=== PATIENT | male | born 1965 | race Caucasian/White ===

== ENCOUNTER 2018-07-13 15:48 | Emergency (ER) | payer SELFPAY ==
[2018-07-13 15:48] VITALS: BP 114/87; PULSE 80; RESP 16; TEMP 36.6; O2SAT 97; BMI 24.5
--- NOTE | 2018-07-13 16:32 | ED.VISSUMM ---
- ER Visit Summary Date of Service: 07/13/18 Chief Complaint: Nausea, vomiting and diarrhea. History of Present Illness: The patient is a 53 M no significant past medical history. Only surgery was for hernia. Patient states that since last he has had nausea, vomiting and diarrhea. No fever. No dysuria. No melena. Denies any significant abdominal pain. Mild cramping with dry heaves. States he left work today and needs a work excuse. He does not want to be worked up. He does not want an IV or IV fluids at this time. Physical Examination: Middle-aged male. Vital signs are stable. He is afebrile. He does not look septic or toxic. HEENT exam unremarkable except for mildly dry mucous membranes. Neck nontender no lymphadenopathy. Lungs clear to auscultation bilaterally. Heart regular rhythm no murmur rate about 80. Abdomen soft. Nondistended. Normal bowel sounds. No peritoneal signs. Both the right upper and right lower quadrants are completely unremarkable. No hernias. No distention. No signs of obstruction. No masses. Positive bowel sounds. Moving all 4 extremities. No edema. Back nontender. Neurologically is awake and alert with no focal motor deficits. Test Results: None Emergency Department Course and Treatment: Patient was offered but deferred IV fluids or IV medications. He will be given p.o. Zofran prior to discharge. Treatment Plan: Zofran as needed for nausea. Return if feeling worse. Off work today. Disposition: Discharge Impression: Acute nausea, vomiting and diarrhea secondary to neuritis Mild dehydration This note was generated with [employer] dictation software. It may contain incorrect words, spelling, and punctuation that were not noted in review of the chart prior to signing ED Disposition - Plan for ED Patient: Chief Complaint: Nausea/Vomiting Referrals: Care Physician,No Primary [Primary Care Provider] -
--- NOTE | 2018-07-13 16:34 | ED.DEP ---
ED Disposition - Plan for ED Patient: Disposition: Home or Assisted Living Chief Complaint: Nausea/Vomiting Instructions: ED Gastroenteritis Viral Prescriptions: Ondansetron [Zofran Odt] 4 mg PO Q2H PRN PRN #10 tab.rapdis PRN Reason: Nausea Referrals: Jeff Mera MD [STAFF PHYSICIAN] - 1-2 Days if not improving Additional Instructions: Plenty of fluids and rest. Increase diet as tolerated. Return if worse. Zofran as needed for nausea.
[2018-07-13] MEDS: Ondansetron ODT 4 MG Tablet 8 MG PO (16:44)
--- NOTE | 2018-07-13 16:47 | ED.RN ---
DISCHARGE INSTRUCTIONS GIVEN TO AND REVIEWED WITH PATIENT, PATIENT DENIES QUESTIONS OR CONCERNS AND VOICES UNDERSTANDING OF DISCHARGE INSTRUCTIONS. PT AMBULATES OUT OF ROOM WITHOUT DIFFICULTY.
== END 2018-07-13 16:48 | disposition home or self-care (01) ==
LOC: ED 16:41
PROVIDERS: Emergency Provider Emergency Medicine
DX: M79.2 Neuralgia and neuritis, unspecified (principal); E86.0 Dehydration
CPT/HCPCS: 99283

== ENCOUNTER 2018-10-07 19:17 | Emergency (ER) | payer SELFPAY ==
[2018-10-07 19:18] VITALS: BP 158/97; PULSE 102; PULSE 104; RESP 18; TEMP 37.2; O2SAT 98; BMI 24.7
--- NOTE | 2018-10-07 19:57 | ED.DCSUM_ITS ---
- ER Visit Summary Date of Service: 10/07/18 Chief Complaint: Nausea, vomiting, and diarrhea History of Present Illness: The patient is a 53 M with nausea, vomiting, and diarrhea for 2 days. This came on gradually. He was sent home from work because he was sick. No fevers. He does have cold symptoms. No past medical history. No medications. No allergies. Physical Examination: Afebrile and vital signs unremarkable. Nontoxic and in no acute distress. Alert and oriented. Heart regular. Lungs clear. Abdomen soft and nontender. Skin appears normal. Normal mucous membranes. Test Results: None indicated Emergency Department Course and Treatment: Patient was treated with Imodium and Zofran. Stay hydrated. This is likely a viral illness. There is no indication for imaging or other diagnostic testing. Patient was given a work note. Return for any new or worsening issues. Treatment Plan: As above Disposition: Discharge Impression: Nausea, vomiting, diarrhea This note was generated with [employer] dictation software. It may contain incorrect words, spelling, and punctuation that were not noted in review of the chart prior to signing ED Disposition - Plan for ED Patient: Disposition: Home or Assisted Living Chief Complaint: Nausea/Vomiting/Diarrhea Instructions: ED Vomiting Diarrhea Nonspecific Ad Prescriptions: Loperamide [Imodium] 2 mg PO Q4H PRN PRN #20 cap PRN Reason: diarrhea Ondansetron [Zofran Odt] 4 mg PO Q8H PRN PRN #10 tab PRN Reason: Nausea
[2018-10-07 20:52] VITALS: BP 145/80; PULSE 80; RESP 18; O2SAT 99
--- OUTSIDE RECORDS SUMMARY | 2018-12-12 17:08 | XMS RPT_ITS ---
:1965 Author Organization [facility] Care Team Providers Name Role Phone Primay Care Physicia, No Primary Care Unavailable Louie Bartholomew Attending Unavailable Dia Chowdhury Attending Unavailable Primay Care Physicia, No Referring Unavailable Primay Care Physicia, No Primary Care Unavailable Ruben Savage Attending Unavailable Tourlas, Philippe Primary Care Unavailable Roge Cano Admitting Unavailable Roge Cano Attending Unavailable Tourlas, Philippe Primary Care Unavailable Jerry Estevez Admitting Unavailable Jerry Estevez Attending Unavailable Tourlas, Philippe Primary Care Unavailable Poulan, Celi A Admitting Unavailable Darek, Celi A Attending Unavailable Tourlas, Philippe Primary Care Unavailable Sokari, Telemate Admitting Unavailable Sokari, Telemate Attending Unavailable Tourlas, Philippe Primary Care Unavailable Ivanauskas, Saulius Admitting Unavailable Ivanauskas, Saulius Attending Unavailable Tourlas, Philippe Primary Care Unavailable Cano, Roge Admitting Unavailable Cano, Roge Attending Unavailable Tourlas, Philippe Primary Care Unavailable Leighann, Darryl W Admitting Unavailable Leighann, Darryl W Attending Unavailable Tourlas, Philippe Primary Care Unavailable Asbridge, Carlota Admitting Unavailable Asbridge, Carlota Attending Unavailable Tourlas, Philippe Primary Care Unavailable Cano, Roge Admitting Unavailable Cano, Roge Attending Unavailable Tourlas, Philippe Primary Care Unavailable Ivanauskas, Saulius Admitting Unavailable Ivanauskas, Saulius Attending Unavailable PROBLEMS PROBLEMS No Problem Records FoundPROCEDURES PROCEDURES No Procedure Records FoundRESULTS RESULTS EMERGENCY DEPARTMENT Observed: 10/07/2018 Status: F Source: AHSAHKA SUMMARY 11:50 PM [facility] REPOSITORY [facility] Medical Records Department [address] [place] [address] Emergency Department Summary 10/07/181955 MR#: [id number] Acct: [id number] Name: MELITON SIDHU Rep #: [id number] : 1965 53 From: Louie Bartholomew MD PCP: Care Physician, No Primary Status: DEP ER - ER Visit Summary Date of Service: 10/07/18 Chief Complaint: Nausea, vomiting, and diarrhea History of Present Illness: The patient is a 53 M with nausea, vomiting, and diarrhea for 2 days. This came on gradually. He was sent home from work because he was sick. No fevers. He does have cold symptoms. No past medical history. No medications. No allergies. Physical Examination: Afebrile and vital signs unremarkable. Nontoxic and in no acute distress. Alert and oriented. Heart regular. Lungs clear. Abdomen soft and nontender. Skin appears normal. Normal mucous membranes. Test Results: None indicated Emergency Department Course and Treatment: Patient was treated with Imodium and Zofran. Stay hydrated. This is likely a viral illness. There is no indication for imaging or other diagnostic testing. Patient was given a work note. Return for any new or worsening issues. Treatment Plan: As above Disposition: Discharge Impression: Nausea, vomiting, diarrhea This note was generated with [employer] dictation software. It may contain incorrect words, spelling, and punctuation that were not noted in review of the chart prior to signing ED Disposition - Plan for ED Patient: Disposition: Home or Assisted Living Chief Complaint: Nausea/Vomiting/Diarrhea Instructions: ED Vomiting Diarrhea Nonspecific Ad Prescriptions: Loperamide [Imodium] 2 mg PO Q4H PRN PRN #20 cap PRN Reason: diarrhea Ondansetron [Zofran Odt] 4 mg PO Q8H PRN PRN #10 tab PRN Reason: Nausea What to do if you have Problems For any increased pain, shortness of breath, bleeding, nausea or vomiting, chest pain, or any unexpected problems, contact your Primary Care Provider. Call [facility] ([phone]) or report to the closest Emergency Room. Call 911 if necessary. 10/07/18 2350 <Electronically signed by Louie Bartholomew MD> Date Louie Bartholomew MD Cosigner Signature (If Indicated): Date CC: No Primary Care Physician DISCHARGE INSTRUCTION Observed: 10/07/2018 Status: F Source: AHSAHKA 11:50 PM [facility] REPOSITORY [facility] Medical Records Department [address] [place] [address] Discharge Instruction 10/07/181956 MR#: [id number] Acct: [id number] Name: MELITON SIDHU Rep #: [id number] : 1965 53 From: Louie Bartholomew MD PCP: Care Physician, No Primary Status: DEP ER ED Disposition - Plan for ED Patient: Chief Complaint: Nausea/Vomiting/Diarrhea Instructions: ED Vomiting Diarrhea Nonspecific Ad Prescriptions: Loperamide [Imodium] 2 mg PO Q4H PRN PRN #20 cap PRN Reason: diarrhea Ondansetron [Zofran Odt] 4 mg PO Q8H PRN PRN #10 tab PRN Reason: Nausea What to do if you have Problems For any increased pain, shortness of breath, bleeding, nausea or vomiting, chest pain, or any unexpected problems, contact your Primary Care Provider. Call [facility] ([phone]) or report to the closest Emergency Room. Call 911 if necessary. 10/07/18 2350 <Electronically signed by Louie Bartholomew MD> Date Louie Bartholomew MD Cosigner Signature (If Indicated): Date CC: No Primary Care Physician EMERGENCY DEPARTMENT Observed: 07/13/2018 Status: F Source: AHSAHKA SUMMARY 11:30 PM [facility] REPOSITORY [facility] Medical Records Department [address] [place] [address] Emergency Department Summary 07/13/18 1632 MR#: [id number] Acct: [id number] Name: MELITON SIDHU Rep #: [id number] : 1965 53 From: Ruben Savage MD PCP: Care Physician, No Primary Status: DEP ER - ER Visit Summary Date of Service: 07/13/18 Chief Complaint: Nausea, vomiting and diarrhea. History of Present Illness: The patient is a 53 M no significant past medical history. Only surgery was for hernia. Patient states that since last he has had nausea, vomiting and diarrhea. No fever. No dysuria. No melena. Denies any significant abdominal pain. Mild cramping with dry heaves. States he left work today and needs a work excuse. He does not want to be worked up. He does not want an IV or IV fluids at this time. Physical Examination: Middle-aged male. Vital signs are stable. He is afebrile. He does not look septic or toxic. HEENT exam unremarkable except for mildly dry mucous membranes. Neck nontender no lymphadenopathy. Lungs clear to auscultation bilaterally. Heart regular rhythm no murmur rate about 80. Abdomen soft. Nondistended. Normal bowel sounds. No peritoneal signs. Both the right upper and right lower quadrants are completely unremarkable. No hernias. No distention. No signs of obstruction. No masses. Positive bowel sounds. Moving all 4 extremities. No edema. Back nontender. Neurologically is awake and alert with no focal motor deficits. Test Results: None Emergency Department Course and Treatment: Patient was offered but deferred IV fluids or IV medications. He will be given p.o. Zofran prior to discharge. Treatment Plan: Zofran as needed for nausea. Return if feeling worse. Off work today. Disposition: Discharge Impression: Acute nausea, vomiting and diarrhea secondary to neuritis Mild dehydration This note was generated with [employer] dictation software. It may contain incorrect words, spelling, and punctuation that were not noted in review of the chart prior to signing ED Disposition - Plan for ED Patient: Chief Complaint: Nausea/Vomiting Referrals: Care Physician,No Primary [Primary Care Provider] - What to do if you have Problems For any increased pain, shortness of breath, bleeding, nausea or vomiting, chest pain, or any unexpected problems, contact your Primary Care Provider. Call [facility] ([phone]) or report to the closest Emergency Room. Call 911 if necessary. 07/13/18 6680 <Electronically signed by Ruben Savage MD> Date Ruben Savage MD Cosigner Signature (If Indicated): Date CC: No Primary Care Physician DISCHARGE INSTRUCTION Observed: 07/13/2018 Status: F Source: ERIN 11:30 PM [facility] REPOSITORY [facility] Medical Records Department [address] [address] Discharge Instruction 07/13/18 1634 MR#: [id number] Acct: [id number] Name: MELITON SIDHU Rep #: [id number] : 1965 53 From: Ruben Savage MD PCP: Care Physician, No Primary Status: DEP ER ED Disposition - Plan for ED Patient: Disposition: Home or Assisted Living Chief Complaint: Nausea/Vomiting Instructions: ED Gastroenteritis Viral Prescriptions: Ondansetron [Zofran Odt] 4 mg PO Q2H PRN PRN #10 tab.rapdis PRN Reason: Nausea Referrals: Jeff Mera MD [STAFF PHYSICIAN] - 1-2 Days if not improving Additional Instructions: Plenty of fluids and rest. Increase diet as tolerated. Return if worse. Zofran as needed for nausea. What to do if you have Problems For any increased pain, shortness of breath, bleeding, nausea or vomiting, chest pain, or any unexpected problems, contact your Primary Care Provider. Call [facility] ([phone]) or report to the closest Emergency Room. Call 911 if necessary. 07/13/18 9150 <Electronically signed by Ruben Savage MD> Date Rbuen Savage MD Cosigner Signature (If Indicated): Date CC: No Primary Care Physician ALLERGIES ALLERGIES DATE TYPE / CODE NAME / CODE REACTION SEVERITY SOURCE 10/07/2018 Drug No Known Unknown [facility] Allergy/416 Allergies/Y79307 [facility] 356567(SNOM 0388(RXNORM) Repository ED CT) Drug/106922 No Known Sabianism 003(SNOMED Allergies [facility] CT) System Repository Drug/844166 traMADol Sabianism 003(SNOMED [facility] CT) System Repository ENCOUNTERS ENCOUNTERS ADMIT/DISCHARGE ACCOUNT NUMBER ADMITTING ENCOUNTER LOCATION SOURCE CLASS 10/09/2018/10/09/19 [id number] Adam, Emergency Sabianism Sabianism [facility] ding:[facility] EDRoom: Repository 10/09/[id number] [facility] Repository 10/07/2018/10/07/19 [id number] Emergency Erin Erin 19 [facility] ding:ED Repository 08/28/2018/08/28/[id number] [facility] EDRoom: WR Repository 08/28/2018 [id number] Ambulatory [facility] Repository 08/26/2018/08/26/[id number] Claudine, Emergency [address] [facility] EDRoom: WR Repository 08/26/2018 [id number] Ambulatory [address] [place] [address] Repository 08/03/2018/08/03/[id number] Darryl Lawton [place] [address] [facility] EDRoom: WR Repository 08/03/2018 [id number] Ambulatory [address] [place] [address] Repository 07/17/[id number] Roge Cano [facility] ding: Health System EDRoom: WR Repository 07/17/2018 [id number] Ambulatory [address] [place] [address] Repository 07/15/2018/07/15/20 [id number] Adam, [address] Regional ding: Health System EDRoom: WR Repository 07/15/2018 [id number] Ambulatory 9509 [facility] Repository 07/13/2018/07/13/20 [id number] Emergency Erin [place] 18 [facility] ding:ED Repository 04/02/2018/04/02/20 [id number] Ambulatory BMSBuilding: Erin 18 [facility] Repository 03/31/2018/03/31/20 [id number] An, [address] [facility] EDRoom: WR Repository 03/31/2018 [id number] Ambulatory 9509 [facility] Repository 01/12/2018/01/13/20 [id number] Darek, Emergency [place] [address] [facility] EDRoom: WR Repository 12/15/2017/12/16/19 [id number] Zenaida Emergency [facility] 18 [facility] ding[facility] EDRoom: WR Repository 11/20/2017/11/21/19 [id number] Roge Cano Emergency [facility] 18 [facility] EDRoom: WR Repository PAYERS PAYERS ENCOUNTER GUARANTOR PAYER SUBSCRIBER SOURCE 10/09/2018 MELITON SIDHU Primary MELITON Hall JrDOB: Insurance:Self JrDOB: [facility] E PayPolicy Number: [id number] [facility] Repository [address], Date:2018-10-09 - [address] [id number] [place] [address]Sfe: Name:Self Pay [phone]: (HP) (HP) (WP) 10/09/2018 MELITON SMITH: Primary MELITON SMITH: Phyllis E Insurance:Self [id number] [facility] Cent[facility] Number: E [facility] Repository [address], Effective Date:[address] [id number]: Name:[facility] [phone]: (HP) (HP) 10/07/2018 MELITON Villatoro NOT [facility]235 E Insurance:SELF PAY [address] Number: Effective Repository [phone]: (419) Date:2018-10-07 [phone] (HP) 08/28/2018 MELITON SIDHU Primary MELITON SIDHU Sabianism DOB: Insurance:Self JrDOB: [facility] E PayPolicy Number: [id number] [facility] Effective E [facility] Repository [address], Date:2018-08-28 - [address] [place] 7324-70-99Iyol [place] [address]Zmk: Name:Self Pay [phone]: (HP) (HP) (WP) 08/28/2018 MELITON RUIZB: Primary MELITON RUIZB: Phyllis E Insurance:Self [id number] [facility] PayPolicy Number: E [facility] Repository [address], Effective Date:Plan [address] [place] [address], [place] [id number]: Name:[facility] [phone]: (HP) (HP) 08/26/2018 MELITON SIDHU Primary MELITON Kimbrougharitan JrDOB: Insurance:Self JrDOB: [facility] E PayPolicy Number: [id number] [facility] Effective E [facility] [address], Date:2018-08-26 - [address], [place] [id number] [place] [address]Vga: Name:Self Pay [phone]: (HP) (HP) (WP) 08/26/2018 MELITON RUIZB: Primary MELITON RUIZB: Phyllis E Insurance:[place] [id number] [facility] E [facility] [address], IncPolicy Number: [facility] [place] [id number]: [id number] [place] [id number]: Date:Plan (HP) Name:[facility] O [address] () [address] [place] [address]HK: 08/03/2018 MELITON SIDHU Primary MELITON Stovall SIDHU Sabianism JrDOB: Insurance:ABDI JrDOB: [facility] E [facility] [id number] [facility] Number: Effective E [facility] [address], Date:2018-08-03 - [address], [place] [id number] [place] [address]Afb: Name::[id number] [phone]: [address], (HP) [place] [address]FK: [phone]) (HP) [phone] (WP) 08/03/2018 MELITON RUIZB: Primary MELITON RUIZB: Phyllis E Insurance:[place] [id number] [facility] E [facility] Repository [address], [facility]: [address] [facility] [place] [place] [id number]: [id number] [place] [id number]: Date:Plan (HP) Name:HealthP O Box () [address] [place] [address]DE: 07/17/2018 MELITON SIDHU Primary MELITON FrankB: Insurance:[facility]: [facility] E [facility] [id number] [facility] Number: Effective E [facility] Repository [address], Date:2018-07-17 - [address] [place] [address] [id number] [place] [address]Whg: Name:CD:[id number] [phone]: [address], (HP) [place] [address]HG: [phone]) (HP) [phone] (WP) 07/17/2018 MELITON SMITH: Primary MELITON RUIZB: Phyllis E Insurance:[place] [id number] [facility] Repository [address], [facility] Number: [address] [place] [id number]: [id number] [place] [id number]: Date:Plan (HP) Name:HealthP O Box (HP) [address] [place] [address]SZ: 07/15/2018 MELITON SIDHU Primary MELITON Stovall NAHUM Hall JrDOB: Insurance:ABDI JrDOB: [facility] E [facility] [id number] [facility] Number: Effective E [facility] Repository [address], Date:2018-07-15 - [address] [place] [address] [id number] [place] [address]Nfo: Name::[id number] [phone]: [address] [place] [address] (HP) [place] [address]HN: [phone]) (HP) [phone] () 07/15/2018 MELITON RUIZB: Primary MELITON RUIZB: Phyllis E Insurance:[place] [id number] [facility] Repository [address] [place] [address] Number: [address] [id number]: [id number] [place] [id number]: Date:Plan () Name:HealthP O Box () [address] [place] [address]ZN: 07/13/2018 MELITON O Primary NOT GIVENUNK [address] Insurance:SELF PAY [address] Number: Effective Repository [phone]: (419) Date:2018-07-13 [phone] (HP) 04/02/2018 MLEITON O Primary NOT GIVENUNK Erin [id number] [facility] Insurance:SELF PAY [address] Number: Effective Repository [phone]: (419) Date:2018-04-02 [phone] (HP) 03/31/2018 MELITON SIDHU Primary MELITON Stovall NAHUM Hall JrDOB: Insurance:ABDI JrDOB: [facility] E [facility] [id number] [facility] Number: Effective E [facility] Repository [address] [place] [address], Date:2018-03-31 - [address] [place] [address] [id number] [place] [address]Qxd: Name:CD:[id number] [phone]: [address] [place] [address] (HP) [place] [address]UQ: ([phone]) (HP) [phone] (WP) 03/31/2018 MELITON SIDHU [facility] MELITON Stovall [facility] JrDOB: Insurance:Abdi JrDOB: [facility] E [facility] [id number] [facility] IncPolicy Number: E [address], [id number] [address] [id number]: Date:[facility] [id number]: Name:[facility] Salo (HP) [address] [place] [address] (HP) [phone]: 01/12/2018 MELITON SIDHU [facility] MELITON [facility] JrDOB: Insurance[facility]: [facility] E [facility] [id number] [facility] Number: Effective E [address], Date:2018-01-12 - [address] [id number] [place] [address]Pgx: Name:CD:[id number]: N [facility] (HP) 210[facility] [place] [place] (HP)Tel: [phone]: (VA) [phone] 12/15/2017 MELITON SIDHU [facility] MELITON [facility] JrDOB: Insurance:[facility] CenterD[facility]: [facility] E [facility] [id number] [facility] Number: Effective E [address], Date:2018-02-15 - [address] [id number] [place] [address]Got: Name:CD:[id number]: N [place] (HP) [place], [place] (HP)Tel: [phone]: (wp) [phone] 11/20/2017 MELITON SIDHU Primary MELITON SIDHU Sabianism JrDOB: Insurance:Self JrDOB: [facility] [id number] E PayPolicy Number: [id number], Date:2017-11-20 - [address] [id number] [place] [address]Bge: Name:Self Pay [phone]: (HP) (HP) (WP)
== END 2018-10-07 20:54 | disposition home or self-care (01) ==
PROVIDERS: Emergency Provider Emergency Medicine
DX: R11.2 Nausea with vomiting, unspecified (principal); R19.7 Diarrhea, unspecified
CPT/HCPCS: 99282